=== PATIENT | female | born 1985 ===

== ENCOUNTER 2022-03-05 21:46 | Emergency (ER) | payer OTHER ==
[~2022-03-05] VITALS: Ht 160 cm; Wt 59.0 kg
[~2022-03-05 21:46] MED LIST: AMOX1TAB12 PO; DOCUSATE SODIU100 MG PO; PEPCID40 MG PO; PRENATAL CAPLE1 EACH PO; VISTARIL25 MG; ZOFRAN4 MG PO
[2022-03-05] MEDS ORDERED: NITROFURANTOIN100 M1 PO (22:04)
[2022-03-05] MEDS ORDERED: OBSTETRX ONE 38-1-22 (22:04)
== END 2022-03-05 23:49 | disposition home or self-care (01) ==
LOC: ER 21:46
DX: O20.9 Hemorrhage in early pregnancy, unspecified (principal); Z3A.11 11 weeks gestation of pregnancy

== ENCOUNTER 2022-05-13 08:07 | Outpatient (CLI) | payer OTHER ==
[~2022-05-13 08:07] MED LIST changes: +NITROFURANTOIN100 M1 PO; +OBSTETRX ONE 38-1-22
== END 2022-05-13 09:30 | disposition home or self-care (01) ==
LOC: PRENATAL 08:07
PROVIDERS: ATTEND Obstetrics & Gynecology Maternal & Fetal Medicine
DX: O35.3XX0 Maternal care for (suspected) damage to fetus from viral disease in mother, not applicable or unspecified (principal); Z3A.20 20 weeks gestation of pregnancy

== ENCOUNTER 2022-08-04 09:31 | Outpatient (CLI) | payer OTHER | END 2022-08-04 10:59 | disposition home or self-care (01) | LOC: PRENATAL 09:31 | PROVIDERS: ATTEND Obstetrics & Gynecology Maternal & Fetal Medicine | DX: O26.849 Uterine size-date discrepancy, unspecified trimester (principal); O36.8199 Decreased fetal movements, unspecified trimester, other fetus; O09.529 Supervision of elderly multigravida, unspecified trimester; Z3A.33 33 weeks gestation of pregnancy ==

== ENCOUNTER 2022-09-15 06:54 | Inpatient (IN) | payer OTHER ==
[~2022-09-15] VITALS: Ht 160 cm; Wt 70.8 kg
[2022-09-15] MEDS ORDERED: PRENATAL + DHA1 EAC1 PO (08:48)
[2022-09-15] MEDS ORDERED: HIERRO (08:49)
[2022-09-18] MEDS ORDERED: NAPR500T14 PO (08:27)
[2022-09-18] MEDS ORDERED: Tylenol #3 PO (08:27)
== END 2022-09-18 13:08 | disposition home or self-care (01) | DRG 788 ==
LOC: OB/GYN 06:54 → LDR 06:54 → OB/GYN 20:04
PROVIDERS: ADMIT Obstetrics & Gynecology; ATTEND Obstetrics & Gynecology
PROC: 4A1HXCZ Monitoring of Products of Conception, Cardiac Rate, External Approach (ICD-10-PCS; 2022-09-15)
PROC: 10D00Z1 Extraction of Products of Conception, Low, Open Approach (ICD-10-PCS; principal; 2022-09-15 19:15)
DX: O82 Encounter for cesarean delivery without indication (principal); O99.824 Streptococcus B carrier state complicating childbirth; Z3A.38 38 weeks gestation of pregnancy; Z37.0 Single live birth; Z20.822 Contact with and (suspected) exposure to COVID-19